=== PATIENT | male | born 1950 | race Caucasian/White ===

== ENCOUNTER 2016-10-12 12:30 | Outpatient (RCR) | payer MEDICARE, OTHER ==
[~2016-10-12 12:30] MED LIST: AMBIEN 10MG10 M1 PO; AMBIEN 10MG10 MG PO; AMLOPIDINE PO; ANUSOL HC25 MG/SUPP RC; ANUSOL-HC SUPPO25 MG RC; ANUSOL1 OIN TP; ASPIRIN E.C. 8181 MG PO; ASTELIN NASAL S34 ML INH; ASTELIN137 MCG/Ac NS; ATENOLOL25 MG PO; ATIVAN 1MG T1 MG/TAB PO; ATIVAN PO; ATROVENT NASAL15 ML NS; BYSTOLIC PO; BYSTOLIC10 MG PO; CALTRATE-600 W600 MG PO; CATAPRES 0.1MG0.1 MG PO; CATAPRES PO; CATAPRES0.2 MG PO; CETIRIZINE PO; CHOLEST OFF; CHOLEST OFF PO; CHOLESTYRAMINE; CIALIS; CIALIS PO; CIALIS20 MG PO; CIPRO 500MG TA500 MG PO; CLOBETASOL0.05% TP; CLONAZEPAM PO; CLOPIDOGREL PO; CYANOCOBAL1000 MCG/1 IM; DESYREL 50MG50 MG PO; DIOVAN 160MG160 MG PO; DIOVAN160 MG PO; DIOVAN80 M1 PO; DITROPAN XL 5MG5 M1 PO; EDECRIN25 M1 PO; EFFEXOR 3737.5 MG/TA PO; ERGOCALCIFER50000 IU PO; FLAGYL500 MG PO; FLOMAX PO; FLONASE NASAL S16 GM NS; FLONASE NS; FOLIC ACID 11 MG/TA1 PO; FOLIC ACID 40400 MCG PO; HCTZ 25MG25 MG PO; IRON TABLETS325 MG PO; IRON325 M1 PO; KLONOPIN 0.5MG0.5 MG PO; KYOLIC GARLIC PO; LASIX 20MG TABL20 MG PO; LASIX PO; LIBRIUM 25M25 MG/CAP PO; LIDODERM PATCH TP; LORTAB 7.5/5001 TAB PO; LYRICA; LYRICA 100MG C100 M1 PO; LYRICA50 MG PO; MUCINEX 60600 MG/TA1 PO; MULTIPLE VITAMI1 TAB PO; MVI; MVI PO; NIASPAN 500MG500 MG PO; NITROSTAT0.4 MG/TAB SL; NORCO 325 MG-7.1 TAB PO; NORVASC 10MG10 MG PO; NORVASC 5MG5 MG/TAB PO; PERCOCET 5/321 UDTAB PO; PRILOSEC 20MG20 MG PO; PROBIOTIC; PROBIOTICA100 Milli1 PO; PROCTO TD; PROTONIX 40MG T40 MG PO; PROTONIX20 MG; QUESTRAN LITE 41 PKT PO; QUESTRAN4 GM/9 GM PO; RANITIDINE HYD PO; RED YEAST RICE600 MG PO; SINGULAIR10 MG PO; TEMOVATE0.05% TP; THIAMINE PO; TRAMADOL PO; ULTRAM100 MG PO; ULTRAM50 MG PO; VALIUM 10MG10 MG/TAB PO; VERAMYST27.5 MCG/A NS; VESICARE10 MG PO; VISTARIL50 MG PO; VITAMIN B12 INJ; VITAMIN C500 MG PO; VITAMIN D 50,1.25 MG PO; VITAMIN D PO; VITAMIN D1000 IU PO; VITAMIN D5000 IU PO; VITAMIN D50000 I2 PO; VOLTAREN GEL 1%1 TU TD; VOLTAREN GEL 1%1 TU TP; VOLTAREN GEL1% TP; XYAL5 MG PO; XYZAL5 MG PO; ZANTAC 300300 MG PO; ZYRTEC 10MG; [UNRECOGNIZED DRUG - OTHER]; [UNRECOGNIZED DRUG - OTHER] PO
== END 2016-10-16 11:38 | disposition home or self-care (01) ==
LOC: WSPT 12:30
DX: G82.20 Paraplegia, unspecified (principal); G62.89 Other specified polyneuropathies
CPT/HCPCS: G8978-GP; G8979-GP; G8980-GP

== ENCOUNTER 2017-04-18 11:15 | Outpatient (RCR) | payer MEDICARE, OTHER | END 2017-04-24 | LOC: WSPT | DX: M21.41 Flat foot [pes planus] (acquired), right foot (principal); M21.42 Flat foot [pes planus] (acquired), left foot; M51.36 Other intervertebral disc degeneration, lumbar region | CPT/HCPCS: G8978-GP; G8979-GP ==

== ENCOUNTER → 2017-05-01 | Outpatient (CLI) | payer MEDICARE, OTHER | LOC: MHCPAIN 12:33 | DX: G89.29 Other chronic pain (principal); M47.27 Other spondylosis with radiculopathy, lumbosacral region; M50.123 Cervical disc disorder at C6-C7 level with radiculopathy | CPT/HCPCS: G0463 ==

== ENCOUNTER 2017-05-02 13:15 | Outpatient (RCR) | payer MEDICARE, OTHER | END 2017-05-08 09:08 | LOC: WSPT 13:15 | DX: M54.5 Low back pain (principal); M21.42 Flat foot [pes planus] (acquired), left foot; M21.41 Flat foot [pes planus] (acquired), right foot | CPT/HCPCS: G8979-GP; G8980-GP ==

== ENCOUNTER → 2017-05-17 | Outpatient (CLI) | payer MEDICARE, OTHER | LOC: MHCPAIN 10:40 | DX: M47.27 Other spondylosis with radiculopathy, lumbosacral region (principal); M99.83 Other biomechanical lesions of lumbar region; M51.17 Intervertebral disc disorders with radiculopathy, lumbosacral region | CPT/HCPCS: J1100; Q9967 ==

== ENCOUNTER → 2017-06-08 | Outpatient (CLI) | payer MEDICARE, OTHER | LOC: MHCPAIN 10:54 | DX: G89.29 Other chronic pain (principal); M47.27 Other spondylosis with radiculopathy, lumbosacral region | CPT/HCPCS: G0463 ==

== ENCOUNTER → 2017-07-13 | Outpatient (CLI) | payer MEDICARE, OTHER | LOC: MHCPAIN 11:37 | DX: G89.29 Other chronic pain (principal); M47.27 Other spondylosis with radiculopathy, lumbosacral region; M48.061 Spinal stenosis, lumbar region without neurogenic claudication | CPT/HCPCS: G0463 ==

== ENCOUNTER → 2017-08-20 | Outpatient (CLI) | payer MEDICARE, OTHER | LOC: COL.LAB 15:03 | DX: J06.9 Acute upper respiratory infection, unspecified (principal); R50.9 Fever, unspecified; J21.9 Acute bronchiolitis, unspecified ==

== ENCOUNTER → 2017-08-23 | Outpatient (CLI) | payer MEDICARE, OTHER | LOC: COL.LAB 12:27 | DX: Z01.89 Encounter for other specified special examinations (principal) ==

== ENCOUNTER → 2017-08-25 | Outpatient (CLI) | payer MEDICARE, OTHER | LOC: ZCOL.LAB 16:17 | DX: R05 Cough (principal) ==

== ENCOUNTER → 2017-12-04 | Outpatient (CLI) | payer MEDICARE, OTHER ==
[~2017-12-04] MED LIST changes: +AMOXICILLIN 8751 TAB PO; +COLESTID 1GM1 G PO; +LOPID 600M600 MG/TAB PO; +NITRO-DUR0.4 MG/PAT TD; +NORCO 325 MG-101 TAB PO; +PROAIR HFA0.09 MG/AC IH; +SEROQUEL 2525 MG/TAB PO
== END ==
LOC: MHCPAIN 11:07
DX: G89.29 Other chronic pain (principal); M47.27 Other spondylosis with radiculopathy, lumbosacral region; M48.061 Spinal stenosis, lumbar region without neurogenic claudication; M53.3 Sacrococcygeal disorders, not elsewhere classified
CPT/HCPCS: G0463

== ENCOUNTER 2017-12-19 13:15 | Outpatient (RCR) | payer MEDICARE, OTHER | END 2018-01-08 | disposition home or self-care (01) | LOC: WSPT | DX: M54.5 Low back pain (principal); G89.29 Other chronic pain; Z79.82 Long term (current) use of aspirin; Z79.899 Other long term (current) drug therapy | CPT/HCPCS: G8978-GP; G8979-GP ==

== ENCOUNTER → 2017-12-20 | Outpatient (CLI) | payer MEDICARE, OTHER | LOC: MHCPAIN 13:02 | DX: M47.27 Other spondylosis with radiculopathy, lumbosacral region (principal); M46.96 Unspecified inflammatory spondylopathy, lumbar region | CPT/HCPCS: J1040; Q9967 ==

== ENCOUNTER → 2017-12-21 | Outpatient (CLI) | payer MEDICARE, OTHER | LOC: COL.RAD 14:52 | DX: N18.1 Chronic kidney disease, stage 1 (principal) ==

== ENCOUNTER → 2018-01-21 | Outpatient (CLI) | payer MEDICARE, OTHER | LOC: MHCPAIN 13:35 | DX: G89.29 Other chronic pain (principal); M47.817 Spondylosis without myelopathy or radiculopathy, lumbosacral region; M54.16 Radiculopathy, lumbar region; M53.3 Sacrococcygeal disorders, not elsewhere classified; M48.061 Spinal stenosis, lumbar region without neurogenic claudication; M47.812 Spondylosis without myelopathy or radiculopathy, cervical region | CPT/HCPCS: G0463 ==

== ENCOUNTER 2018-03-01 13:00 | Outpatient (RCR) | payer MEDICARE, OTHER | END 2018-04-10 | disposition still patient (30) | LOC: WSPT | DX: M54.2 Cervicalgia (principal); G89.29 Other chronic pain | CPT/HCPCS: G8978-GP; G8979-GP; G8980-GP ==

== ENCOUNTER → 2018-03-26 | Outpatient (CLI) | payer MEDICARE, OTHER | LOC: MHCPAIN 13:45 | DX: G89.29 Other chronic pain (principal); M47.817 Spondylosis without myelopathy or radiculopathy, lumbosacral region; M54.16 Radiculopathy, lumbar region; M53.3 Sacrococcygeal disorders, not elsewhere classified | CPT/HCPCS: G0463 ==

== ENCOUNTER 2018-04-17 11:38 | Outpatient (RCR) | payer MEDICARE, OTHER ==
[2018-05-31] MEDS ORDERED: ALDACTONE50 MG PO (21:13)
[2018-05-31] MEDS ORDERED: IMDUR 30MG30 MG/TAB PO (21:15)
[2018-05-31] MEDS ORDERED: ULORIC40 MG PO (21:15)
[2018-05-31] MEDS ORDERED: VOLTAREN 50MG T50 MG PO (21:16)
[2018-05-31] MEDS ORDERED: VYVANSE10 MG PO (21:17)
[2018-05-31] MEDS ORDERED: NEURONTIN100 MG/CAP PO (22:39)
[2018-05-31] MEDS ORDERED: XANAX 0.5MG0.5 MG PO (22:40)
[2018-05-31] MEDS ORDERED: DESYREL 100MG100 MG PO (22:43)
[2018-05-31] MEDS ORDERED: VYVANSE30 MG PO (22:44)
[2018-05-31] MEDS ORDERED: MELATONIN 3MG PO (22:45)
[2018-05-31] MEDS ORDERED: EFFEXOR XR75 MG/CAP PO (22:47)
[2018-05-31] MEDS ORDERED: NORVASC 5MG5 MG/TAB PO (22:49)
[2018-05-31] MEDS ORDERED: MICARDIS80 MG PO (22:51)
[2018-06-04] MEDS ORDERED: BUMEX 1MG TA1 MG/TA1 PO (11:36)
[2018-06-04] MEDS ORDERED: CATAPRES 0.1MG0.1 MG PO ×2 (12:44→12:45)
[2018-06-04] MEDS ORDERED: COZAAR 25MG25 MG/TAB PO (12:49)
[2018-07-04] MEDS ORDERED: APRESOLINE 25MG25 MG PO (12:39)
[2018-07-04] MEDS ORDERED: MICARDIS80 MG PO (12:39)
[2018-07-04] MEDS ORDERED: BYSTOLIC10 MG PO (14:03)
== END 2018-07-16 | disposition home or self-care (01) ==
LOC: WSPT
DX: M50.30 Other cervical disc degeneration, unspecified cervical region (principal)

== ENCOUNTER 2018-05-09 15:00 | Outpatient (RCR) | payer MEDICARE, OTHER ==
[2018-05-31] MEDS ORDERED: ALDACTONE50 MG PO (21:13)
[2018-05-31] MEDS ORDERED: ULORIC40 MG PO (21:15)
[2018-05-31] MEDS ORDERED: IMDUR 30MG30 MG/TAB PO (21:15)
[2018-05-31] MEDS ORDERED: VOLTAREN 50MG T50 MG PO (21:16)
[2018-05-31] MEDS ORDERED: VYVANSE10 MG PO (21:17)
[2018-05-31] MEDS ORDERED: NEURONTIN100 MG/CAP PO (22:39)
[2018-05-31] MEDS ORDERED: XANAX 0.5MG0.5 MG PO (22:40)
[2018-05-31] MEDS ORDERED: DESYREL 100MG100 MG PO (22:43)
[2018-05-31] MEDS ORDERED: VYVANSE30 MG PO (22:44)
[2018-05-31] MEDS ORDERED: MELATONIN 3MG PO (22:45)
[2018-05-31] MEDS ORDERED: EFFEXOR XR75 MG/CAP PO (22:47)
[2018-05-31] MEDS ORDERED: NORVASC 5MG5 MG/TAB PO (22:49)
[2018-05-31] MEDS ORDERED: MICARDIS80 MG PO (22:51)
[2018-06-04] MEDS ORDERED: BUMEX 1MG TA1 MG/TA1 PO (11:36)
[2018-06-04] MEDS ORDERED: CATAPRES 0.1MG0.1 MG PO ×2 (12:44→12:45)
[2018-06-04] MEDS ORDERED: COZAAR 25MG25 MG/TAB PO (12:49)
== END 2018-06-04 | disposition home or self-care (01) ==
LOC: WSPT
DX: M50.30 Other cervical disc degeneration, unspecified cervical region (principal)
CPT/HCPCS: G8978-GP; G8979-GP

== ENCOUNTER → 2018-05-14 | Outpatient (CLI) | payer MEDICARE, OTHER | LOC: MHCPAIN 14:36 | DX: M79.10 Myalgia, unspecified site (principal) | CPT/HCPCS: J1040 ==

== ENCOUNTER 2018-07-04 11:06 | Day surgery (SDC) | payer MEDICARE, OTHER ==
[~2018-07-04] VITALS: Ht 190.7 cm; Wt 147.9 kg
[2018-07-04] VITALS (10 sets, daily range): BP systolic 126–156; BP diastolic 70–86; PULSE 58–86; TEMP 97.2
[~2018-07-04 11:06] MED LIST changes: +ALDACTONE50 MG PO; +BUMEX 1MG TA1 MG/TA1 PO; +COZAAR 25MG25 MG/TAB PO; +DESYREL 100MG100 MG PO; +EFFEXOR XR75 MG/CAP PO; +IMDUR 30MG30 MG/TAB PO; +MELATONIN 3MG PO; +MICARDIS80 MG PO; +NEURONTIN100 MG/CAP PO; +ULORIC40 MG PO; +VOLTAREN 50MG T50 MG PO; +VYVANSE10 MG PO; +VYVANSE30 MG PO; +XANAX 0.5MG0.5 MG PO
[2018-07-04 12:08] LABS: HEMOGLOBIN 11.8 g/dl (13.5-18.0); MEAN CELL VOLUME 91 fl (80.0-100.0); MEAN CORPUSCULAR HEMOGLOBIN 30 pg (27.0-31.0); MEAN CORPUSCULAR HGB CONC 32 g/dl (33.0-37.0); MEAN PLATELET VOLUME 9.5 fl (7.4-10.4); PLATELET COUNT 275 K/mm3 (130-400); REDCELL DISTRIBUTION WIDTH-CV 15.4 % (11.5-14.5)
[2018-07-04 12:09] LABS: HEMATOCRIT 36.4 % (42.0-52.0)
[2018-07-04 12:14] LABS: PROTHROMBIN TIME 11.3 SECONDS (9.7-12.8)
[2018-07-04 12:18] LABS: CALCIUM 9.2 mg/dL (8.4-10.2); CREATININE, serum 1.36 mg/dL (0.66-1.25); POTASSIUM 4.5 mmol/L (3.4-5.0)
[2018-07-04] MEDS ORDERED: MICARDIS80 MG PO (12:39)
[2018-07-04] MEDS ORDERED: APRESOLINE 25MG25 MG PO (12:39)
[2018-07-04] MEDS ORDERED: BYSTOLIC10 MG PO (14:03)
== END 2018-07-04 19:10 | disposition home or self-care (01) ==
LOC: COL.CAR 11:06
PROVIDERS: Internal Medicine Cardiovascular Disease
DX: I25.10 Atherosclerotic heart disease of native coronary artery without angina pectoris (principal); R94.39 Abnormal result of other cardiovascular function study; E87.5 Hyperkalemia; N17.9 Acute kidney failure, unspecified; E78.5 Hyperlipidemia, unspecified; I10 Essential (primary) hypertension; G47.33 Obstructive sleep apnea (adult) (pediatric); I83.899 Varicose veins of unspecified lower extremity with other complications; I87.2 Venous insufficiency (chronic) (peripheral); M10.9 Gout, unspecified; F32.9 Major depressive disorder, single episode, unspecified; K21.9 Gastro-esophageal reflux disease without esophagitis; Z79.82 Long term (current) use of aspirin; Z95.5 Presence of coronary angioplasty implant and graft; Z88.2 Allergy status to sulfonamides; Z88.8 Allergy status to other drugs, medicaments and biological substances; Z85.46 Personal history of malignant neoplasm of prostate; Z82.49 Family history of ischemic heart disease and other diseases of the circulatory system
CPT/HCPCS: J1644; J2250; J3010

== ENCOUNTER → 2018-08-13 | Outpatient (CLI) | payer MEDICARE, OTHER ==
[~2018-08-13] MED LIST changes: +APRESOLINE 25MG25 MG PO
== END ==
LOC: MHCPAIN 12:59
DX: G89.29 Other chronic pain (principal); M47.817 Spondylosis without myelopathy or radiculopathy, lumbosacral region; M54.16 Radiculopathy, lumbar region; M53.3 Sacrococcygeal disorders, not elsewhere classified
CPT/HCPCS: G0463

== ENCOUNTER → 2018-08-29 | Outpatient (CLI) | payer MEDICARE, OTHER ==
[~2018-08-29] VITALS: Ht 185.4 cm; Wt 146.5 kg
[~2018-08-29] MED LIST changes: +AMOXICILLIN 50500 MG PO; +BYSTOLIC20 MG PO; +COLCRYS0.6 MG PO; +LIORESAL 1010 MG/TAB PO; +MASON NATURAL500 M1 PO; +MASON NATURAL600 MG PO; -NORCO 325 MG-101 TAB PO; +NORCO 325 MG-51 TAB PO; +SINGULAIR 110 MG/TAB PO; +VASCEPA0.5 GM PO; +VITAMIN B11000 MCG/M IM; +[UNRECOGNIZED DRUG - OTHER] PO
[2018-08-29 16:16] VITALS: BP 156/72; PULSE 80
== END ==
LOC: LIGHT 06-04 14:57
DX: E88.81 Metabolic syndrome and other insulin resistance (principal); R73.01 Impaired fasting glucose; E66.01 Morbid (severe) obesity due to excess calories; Z68.41 Body mass index [BMI] 40.0-44.9, adult; Z71.3 Dietary counseling and surveillance

== ENCOUNTER → 2018-09-09 | Outpatient (CLI) | payer MEDICARE, OTHER | LOC: LIGHT 14:00 | DX: E88.81 Metabolic syndrome and other insulin resistance (principal); I25.10 Atherosclerotic heart disease of native coronary artery without angina pectoris; R73.01 Impaired fasting glucose; E66.01 Morbid (severe) obesity due to excess calories; Z68.41 Body mass index [BMI] 40.0-44.9, adult; Z71.3 Dietary counseling and surveillance ==

== ENCOUNTER → 2018-09-11 | Outpatient (CLI) | payer MEDICARE, OTHER | LOC: LIGHT 14:06 | DX: E88.81 Metabolic syndrome and other insulin resistance (principal); R73.01 Impaired fasting glucose; E66.01 Morbid (severe) obesity due to excess calories; Z68.41 Body mass index [BMI] 40.0-44.9, adult; Z71.3 Dietary counseling and surveillance ==

== ENCOUNTER → 2018-10-03 | Outpatient (CLI) | payer MEDICARE, OTHER ==
[~2018-10-03] VITALS: Ht 185.4 cm; Wt 150.1 kg
[~2018-10-03] MED LIST changes: -EFFEXOR XR75 MG/CAP PO; +EFFEXOR-XR150 MG PO
[2018-10-03 15:24] VITALS: BP 150/80; PULSE 64
== END ==
LOC: LIGHT 11:13
DX: E88.81 Metabolic syndrome and other insulin resistance (principal); I25.10 Atherosclerotic heart disease of native coronary artery without angina pectoris; R73.01 Impaired fasting glucose; E66.01 Morbid (severe) obesity due to excess calories; Z68.41 Body mass index [BMI] 40.0-44.9, adult; Z71.3 Dietary counseling and surveillance
CPT/HCPCS: G0463

== ENCOUNTER → 2018-10-31 | Outpatient (CLI) | payer MEDICARE, OTHER ==
[~2018-10-31] VITALS: Ht 185.4 cm; Wt 145.8 kg
[~2018-10-31] MED LIST changes: -VYVANSE30 MG PO; +VYVANSE50 MG PO
[2018-10-31 16:06] VITALS: BP 150/76; PULSE 60
== END ==
LOC: LIGHT 14:45
DX: E88.81 Metabolic syndrome and other insulin resistance (principal); R73.01 Impaired fasting glucose; E66.9 Obesity, unspecified; Z68.41 Body mass index [BMI] 40.0-44.9, adult; Z71.3 Dietary counseling and surveillance
CPT/HCPCS: G0463

== ENCOUNTER → 2018-11-12 | Outpatient (CLI) | payer MEDICARE, OTHER | LOC: MHCPAIN 13:14 | DX: G89.29 Other chronic pain (principal); M47.817 Spondylosis without myelopathy or radiculopathy, lumbosacral region; M54.16 Radiculopathy, lumbar region; M53.3 Sacrococcygeal disorders, not elsewhere classified | CPT/HCPCS: G0463 ==

== ENCOUNTER 2018-11-26 13:00 | Outpatient (RCR) | payer MEDICARE, OTHER | END 2018-12-02 | disposition home or self-care (01) | LOC: WSPT | DX: M47.812 Spondylosis without myelopathy or radiculopathy, cervical region (principal); M54.16 Radiculopathy, lumbar region; M47.817 Spondylosis without myelopathy or radiculopathy, lumbosacral region; M53.3 Sacrococcygeal disorders, not elsewhere classified; G89.29 Other chronic pain ==

== ENCOUNTER → 2018-12-05 | Outpatient (CLI) | payer MEDICARE, OTHER ==
[~2018-12-05] VITALS: Ht 185.4 cm; Wt 144.5 kg
[2018-12-05 10:31] VITALS: BP 130/78; PULSE 80
== END ==
LOC: LIGHT 10:19
DX: E88.81 Metabolic syndrome and other insulin resistance (principal); I25.10 Atherosclerotic heart disease of native coronary artery without angina pectoris; R73.01 Impaired fasting glucose; E66.01 Morbid (severe) obesity due to excess calories; Z68.41 Body mass index [BMI] 40.0-44.9, adult; Z71.3 Dietary counseling and surveillance
CPT/HCPCS: G0463

== ENCOUNTER 2019-01-21 15:00 | Outpatient (RCR) | payer MEDICARE, OTHER ==
[2019-02-27] MEDS ORDERED: SAXENDA6 MG/ML SQ (13:52)
== END 2019-02-27 13:06 | disposition home or self-care (01) ==
LOC: WSPT 15:00
DX: M54.16 Radiculopathy, lumbar region (principal); M53.3 Sacrococcygeal disorders, not elsewhere classified; G89.29 Other chronic pain

== ENCOUNTER → 2019-01-23 | Outpatient (CLI) | payer MEDICARE, OTHER ==
[~2019-01-23] VITALS: Ht 185.4 cm; Wt 145.8 kg
[2019-01-23 13:13] VITALS: BP 136/84; PULSE 64
== END ==
LOC: LIGHT 10:38
DX: E88.81 Metabolic syndrome and other insulin resistance (principal); I25.10 Atherosclerotic heart disease of native coronary artery without angina pectoris; R73.01 Impaired fasting glucose; E66.01 Morbid (severe) obesity due to excess calories; Z68.41 Body mass index [BMI] 40.0-44.9, adult; Z71.3 Dietary counseling and surveillance
CPT/HCPCS: G0463

== ENCOUNTER → 2019-02-27 | Outpatient (CLI) | payer MEDICARE, OTHER ==
[~2019-02-27] VITALS: Ht 185.4 cm; Wt 144.9 kg
[~2019-02-27] MED LIST changes: +SAXENDA6 MG/ML SQ
[2019-02-27 13:53] VITALS: BP 142/70; PULSE 80
== END ==
LOC: LIGHT 10:35
DX: E88.81 Metabolic syndrome and other insulin resistance (principal); R73.01 Impaired fasting glucose; E66.01 Morbid (severe) obesity due to excess calories; Z68.41 Body mass index [BMI] 40.0-44.9, adult; Z71.3 Dietary counseling and surveillance
CPT/HCPCS: G0463

== ENCOUNTER → 2019-04-10 | Outpatient (CLI) | payer MEDICARE, OTHER ==
[~2019-04-10] VITALS: Ht 185.4 cm; Wt 144.2 kg
[2019-04-10 13:50] VITALS: BP 130/78; PULSE 76
== END ==
LOC: LIGHT 04-03 11:33
DX: E88.81 Metabolic syndrome and other insulin resistance (principal); R73.01 Impaired fasting glucose; E66.01 Morbid (severe) obesity due to excess calories; Z68.41 Body mass index [BMI] 40.0-44.9, adult; Z71.3 Dietary counseling and surveillance
CPT/HCPCS: G0463

== ENCOUNTER → 2019-05-13 | Outpatient (CLI) | payer MEDICARE, OTHER | LOC: MHCPAIN 13:22 | DX: G89.29 Other chronic pain (principal); M47.817 Spondylosis without myelopathy or radiculopathy, lumbosacral region; M54.16 Radiculopathy, lumbar region; M53.3 Sacrococcygeal disorders, not elsewhere classified | CPT/HCPCS: G0463 ==

== ENCOUNTER → 2019-05-15 | Outpatient (CLI) | payer MEDICARE, OTHER ==
[~2019-05-15] VITALS: Ht 185.4 cm; Wt 142.4 kg
[2019-05-15 13:15] VITALS: BP 164/84; PULSE 88
== END ==
LOC: LIGHT 13:05
DX: E88.81 Metabolic syndrome and other insulin resistance (principal); R73.01 Impaired fasting glucose; E66.01 Morbid (severe) obesity due to excess calories; Z68.41 Body mass index [BMI] 40.0-44.9, adult; Z71.3 Dietary counseling and surveillance
CPT/HCPCS: G0463

== ENCOUNTER → 2019-06-19 | Outpatient (CLI) | payer MEDICARE, OTHER ==
[~2019-06-19] VITALS: Ht 185.4 cm; Wt 151.3 kg
[2019-06-19 13:14] VITALS: BP 144/92; PULSE 84
== END ==
LOC: LIGHT 13:05
DX: E88.81 Metabolic syndrome and other insulin resistance (principal); R73.01 Impaired fasting glucose; I25.10 Atherosclerotic heart disease of native coronary artery without angina pectoris; E66.01 Morbid (severe) obesity due to excess calories; Z68.41 Body mass index [BMI] 40.0-44.9, adult; Z71.3 Dietary counseling and surveillance
CPT/HCPCS: G0463

== ENCOUNTER → 2019-08-21 | Outpatient (CLI) | payer MEDICARE, OTHER ==
[~2019-08-21] VITALS: Ht 185.4 cm; Wt 148.1 kg
[~2019-08-21] MED LIST changes: +PRALUENT P75 MG/1 ML SQ; +WELLBUTRIN 75MG75 MG PO
[2019-08-21 13:21] VITALS: BP 120/86; PULSE 76
== END ==
LOC: LIGHT 13:03
DX: Z68.41 Body mass index [BMI] 40.0-44.9, adult (principal); E88.81 Metabolic syndrome and other insulin resistance; I25.10 Atherosclerotic heart disease of native coronary artery without angina pectoris; R73.01 Impaired fasting glucose
CPT/HCPCS: G0463

== ENCOUNTER 2019-08-25 15:15 | Outpatient (RCR) | payer MEDICARE, OTHER ==
[~2019-08-25 15:15] MED LIST changes: -PRALUENT P75 MG/1 ML SQ
[2019-09-25] MEDS ORDERED: PRALUENT P75 MG/1 ML SQ (13:18)
== END 2019-08-26 | disposition home or self-care (01) ==
LOC: WSC
DX: M47.27 Other spondylosis with radiculopathy, lumbosacral region (principal); M53.3 Sacrococcygeal disorders, not elsewhere classified

== ENCOUNTER → 2019-09-25 | Outpatient (CLI) | payer MEDICARE, OTHER ==
[~2019-09-25] VITALS: Ht 185.4 cm; Wt 146.5 kg
[~2019-09-25] MED LIST changes: +PRALUENT P75 MG/1 ML SQ
[2019-09-25 13:18] VITALS: BP 110/76; PULSE 72
== END ==
LOC: LIGHT 13:07
DX: Z68.41 Body mass index [BMI] 40.0-44.9, adult (principal); E88.81 Metabolic syndrome and other insulin resistance; R73.01 Impaired fasting glucose
CPT/HCPCS: G0463

== ENCOUNTER → 2020-02-03 | Outpatient (CLI) | payer MEDICARE, OTHER | LOC: MHCPAIN 09:53 | DX: M47.817 Spondylosis without myelopathy or radiculopathy, lumbosacral region (principal); M54.5 Low back pain; M53.3 Sacrococcygeal disorders, not elsewhere classified; G89.29 Other chronic pain; M54.16 Radiculopathy, lumbar region | CPT/HCPCS: G0463 ==

== ENCOUNTER → 2020-07-27 | Outpatient (CLI) | payer MEDICARE, OTHER | LOC: MHCPAIN 14:44 | DX: M47.817 Spondylosis without myelopathy or radiculopathy, lumbosacral region (principal); M47.812 Spondylosis without myelopathy or radiculopathy, cervical region; M54.5 Low back pain; M79.2 Neuralgia and neuritis, unspecified; G89.29 Other chronic pain | CPT/HCPCS: G0463 ==

== ENCOUNTER 2020-07-29 13:00 | Outpatient (RCR) | payer MEDICARE, OTHER | END 2020-08-02 | disposition home or self-care (01) | LOC: WSPT | DX: M48.061 Spinal stenosis, lumbar region without neurogenic claudication (principal) ==

== ENCOUNTER 2020-11-01 12:00 | Outpatient (RCR) | payer MEDICARE, OTHER | END 2020-11-03 | disposition home or self-care (01) | LOC: WSPT | DX: M48.061 Spinal stenosis, lumbar region without neurogenic claudication (principal) ==

== ENCOUNTER 2020-11-09 10:45 | Outpatient (RCR) | payer OTHER | END 2020-11-18 | disposition still patient (30) | LOC: WSOT | DX: E66.01 Morbid (severe) obesity due to excess calories (principal) ==

== ENCOUNTER 2020-11-30 18:56 | Emergency (ER) | payer MEDICARE, OTHER ==
[~2020-11-30] VITALS: Ht 188 cm; Wt 150.0 kg
[2020-11-30 19:34] VITALS: TEMP 97.4
[2020-11-30 20:26] LABS: BASO % 0.2 % (0.0-2.0); EOS % 0.1 % (0-4.0); GRAN % 81.5 % (42.2-75.2); HEMOGLOBIN 10.5 g/dl (13.5-18.0); LYMPH % 7.4 % (20.0-51.0); MEAN CELL VOLUME 89 fl (80.0-100.0); MEAN CORPUSCULAR HEMOGLOBIN 29 pg (27.0-31.0); MEAN CORPUSCULAR HGB CONC 33 g/dl (33.0-37.0); MEAN PLATELET VOLUME 9.9 fl (7.4-10.4); MONO # 1.4 (0.1-0.6); MONO % 10.3 % (1.7-9.3); PLATELET COUNT 271 K/mm3 (130-400)
[2020-11-30 20:31] LABS: INR 1.4 (0.8-3.0); PROTHROMBIN TIME 15.6 SECONDS (9.7-12.8)
[2020-11-30 20:33] LABS: CALCIUM 8.4 mg/dL (8.4-10.2); CREATININE, serum 1.39 (0.66-1.25); POTASSIUM 4.2 mmol/L (3.4-5.0)
[2020-11-30 20:34] LABS: PARTIAL THROMBOPLASTIN TIME 29.6 SECONDS (26.0-37.0)
[2020-11-30] MEDS ORDERED: AMOXICILLIN875 MG PO (21:26)
[2020-11-30 21:50] VITALS: BP 141/78; PULSE 78
== END 2020-11-30 21:35 | disposition home or self-care (01) ==
LOC: COL.ER 18:56
PROVIDERS: Emergency Medicine
DX: R04.0 Epistaxis (principal); D72.829 Elevated white blood cell count, unspecified; Z79.82 Long term (current) use of aspirin; Z88.2 Allergy status to sulfonamides; Z88.8 Allergy status to other drugs, medicaments and biological substances

== ENCOUNTER → 2020-12-08 | Outpatient (CLI) | payer MEDICARE, OTHER ==
[~2020-12-08] MED LIST changes: +AMOXICILLIN875 MG PO
== END ==
LOC: COL.LAB 16:12
DX: J30.1 Allergic rhinitis due to pollen (principal)

== ENCOUNTER 2020-12-15 10:00 | Outpatient (RCR) | payer MEDICARE, OTHER | END 2021-02-07 | disposition home or self-care (01) | LOC: WSPT | DX: M48.061 Spinal stenosis, lumbar region without neurogenic claudication (principal) ==

== ENCOUNTER → 2021-01-18 | Outpatient (CLI) | payer MEDICARE, OTHER | LOC: MHCPAIN 12:32 | DX: M47.817 Spondylosis without myelopathy or radiculopathy, lumbosacral region (principal); M53.3 Sacrococcygeal disorders, not elsewhere classified; M54.5 Low back pain | CPT/HCPCS: G0463 ==

== ENCOUNTER → 2022-01-18 | Outpatient (CLI) | payer MEDICARE, OTHER | LOC: MHCPAIN 11:13 | DX: M54.2 Cervicalgia (principal); M54.50 Low back pain, unspecified; M47.812 Spondylosis without myelopathy or radiculopathy, cervical region; M47.814 Spondylosis without myelopathy or radiculopathy, thoracic region | CPT/HCPCS: G0463 ==

== ENCOUNTER → 2022-09-20 | Outpatient (CLI) | payer MEDICARE, OTHER | LOC: COL.VAS 12:31 | DX: R60.0 Localized edema (principal) ==

== ENCOUNTER 2023-07-13 12:55 | Outpatient (RCR) | payer MEDICARE, OTHER | END 2023-07-29 | disposition home or self-care (01) | LOC: WSPT | DX: M48.061 Spinal stenosis, lumbar region without neurogenic claudication (principal) ==

== ENCOUNTER 2023-08-22 14:15 | Outpatient (RCR) | payer MEDICARE, OTHER | END 2023-08-29 | disposition home or self-care (01) | LOC: WSPT | DX: M48.061 Spinal stenosis, lumbar region without neurogenic claudication (principal) ==

== ENCOUNTER 2023-09-26 10:30 | Outpatient (RCR) | payer MEDICARE, OTHER | END 2023-09-27 | disposition home or self-care (01) | LOC: WSPT | DX: M48.061 Spinal stenosis, lumbar region without neurogenic claudication (principal) ==

== ENCOUNTER 2023-10-18 14:15 | Outpatient (RCR) | payer MEDICARE, OTHER | END 2023-10-28 | disposition home or self-care (01) | LOC: WSPT | DX: M48.061 Spinal stenosis, lumbar region without neurogenic claudication (principal) ==

== ENCOUNTER 2023-12-14 11:15 | Outpatient (RCR) | payer MEDICARE, OTHER | END 2023-12-28 | disposition home or self-care (01) | LOC: WSPT | DX: M48.061 Spinal stenosis, lumbar region without neurogenic claudication (principal) ==